=== PATIENT | female | born 1990 | race African-American/Black ===

== ENCOUNTER 2016-12-31 17:34 | Emergency (ER) | payer SELFPAY ==
[~2016-12-31] VITALS: Ht 162.6 cm; Wt 45.4 kg
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
[2016-12-31] MEDS ORDERED: Ketorolac 60mg Inj IM ONE (18:15)
[2016-12-31] MEDS ORDERED: LIDODERM700 M1 TOPIC (18:19)
[2016-12-31] MEDS ORDERED: IBUPROFEN600 MG ORAL (18:19)
[2016-12-31] MEDS ORDERED: ROBAXIN-750750 MG PO (18:19)
[2016-12-31 18:53] VITALS: BP 97/59
[2016-12-31 18:56] VITALS: BP 97/59
== END 2016-12-31 18:56 | disposition home or self-care (01) ==
LOC: EMR 18:37
DX: M62.838 Other muscle spasm (principal); S80.02XA Contusion of left knee, initial encounter; V43.52XA Car driver injured in collision with other type car in traffic accident, initial encounter; Y92.410 Unspecified street and highway as the place of occurrence of the external cause; J45.909 Unspecified asthma, uncomplicated
CPT/HCPCS: 96372; 99284